=== PATIENT | male | born 1945 | race American Indian/Alaskan Native ===

== ENCOUNTER 2020-11-26 23:30 | Inpatient (IN) | payer MEDICARE ==
[2020-11-27] MEDS ORDERED: SUCRALFATE 1 GM TAB PO ONE (00:34)
[2020-11-27] MEDS ORDERED: FAMOTIDINE 20 MG TAB PO ONE (00:34)
[2020-11-27] MEDS ORDERED: ONDANSETRON 4 MG ODT TAB PO ONE (00:34)
--- NOTE | 2020-11-27 00:39 | Event Note ---
ED Screening Note Date of service: 11/27/20 Time: 00:36 ED Screening Note: Patient is a 75 yo AA male with a h/o HTN and GERD presents to the ED with c/o acute onset persistent epigastric pain, intractable hiccups, nausea and vomiting for the last 2 days. Patient states that he has had multiple episodes of nausea and vomiting and worsening epigastric pain despite taking his usual GERD medications, Mylanta and Nexium. Patient denies chest pain, dizziness, fever, chills, cough, diarrhea, sore throat, headache, diaphoresis, neck pain, hematemesis or hematochezia This initial assessment/diagnostic orders/clinical plan/treatment(s) is/are subject to change based on patients health status, clinical progression and re- assessment by fellow clinical providers in the ED. Further treatment and workup at subsequent clinical providers discretion. Patient/guardian urged not to elope from the ED as their condition may be serious if not clinically assessed and managed. Initial orders include: CBC, CMP, UA, Lipase, EKG, chest x-ray, Troponins
[2020-11-27 00:54] LABS: Basophils % (Auto) 0.1 % (0.0-1.8); Eosinophils % (Auto) 0.5 % (0.0-4.3); Lymphocytes # (Auto) 1.2 K/mm3 (1.2-5.4); Lymphocytes % (Auto) 15.3 % (13.4-35.0); Mean Corpuscular HGB Conc 36 % (32-34); Mean Corpuscular Volume 97 fl (84-94); Monocytes # (Auto) 0.7 K/mm3 (0.0-0.8); Monocytes % (Auto) 9.3 % (0.0-7.3); Platelet Count 139 K/mm3 (140-440); Red Blood Count 4.33 M/mm3 (3.65-5.03); Red Cell Distribution Width 12.7 % (13.2-15.2)
--- NOTE | 2020-11-27 01:00 | XRay Report ---
CHEST 1 VIEW 0045 INDICATION / CLINICAL INFORMATION: dyspnea COMPARISON: None available. FINDINGS: SUPPORT DEVICES: None HEART / MEDIASTINUM: No significant abnormality. LUNGS / PLEURA: No significant pulmonary or pleural abnormality. No pneumothorax. ADDITIONAL FINDINGS: No significant additional findings. IMPRESSION: No significant acute abnormality Signer Name: Yves Judd MD Signed: 11/27/2020 12:55 AM Workstation Name: [id number]
[2020-11-27 01:03] LABS: Hematocrit 41.8 % (35.5-45.6); Hemoglobin 15.2 gm/dl (11.8-15.2)
[2020-11-27 01:17] LABS: Alanine Aminotransferase 35 units/L (7-56); Albumin 4.3 g/dL (3.9-5); Blood Urea Nitrogen 4 mg/dL (9-20); Calcium 8.4 mg/dL (8.4-10.2); Hemolysis Index 26
[2020-11-27 01:34] LABS: BUN/Creatinine Ratio 8
[2020-11-27] MEDS ORDERED: SODIUM CHLORIDE 0.9% 1000 ML 1,000 ML IV ONE (02:18)
[2020-11-27] MEDS ORDERED: POTASSIUM CHLORIDE ER 20 MEQ TAB PO ONE (02:19)
[2020-11-27] MEDS ORDERED: PANTOPRAZOLE 40 MG INJ IV ONE (02:19)
--- NOTE | 2020-11-27 02:23 | Emergency Department Report ---
HPI - General Chief Complaint: Abdominal Pain Time Seen by Provider: 11/27/20 02:11 - HPI HPI: This is a 75-year-old male who presents to the emergency department with a complaint of a 1 day history of upper abdominal pain along with nausea with vomiting. Patient has a history of some type of gastric or duodenal ulcer that was found years ago. He says that the abdominal pain is consistent with this. He denies any fever, constipation, diarrhea, dysuria, chest pain or shortness of breath. He does admit to some generalized weakness and lightheadedness. He has a past medical history of hypertension. He has not taken anything for his symptoms prior to presentation. He denies any tobacco or illicit drug use. He denies any excessive alcohol use or history of alcohol dependence. He has a primary care physician, Dr. Lester, but has not seen them regarding his symptoms. ED Past Medical Hx - Past Medical History Previous Medical History?: No Hx Hypertension: Yes - Surgical History Past Surgical History?: No - Social History Smoking Status: Never Smoker Substance Use Type: Alcohol ED Review of Systems ROS: Stated complaint: KICCUPS;ULCER;VOMITING Other details as noted in HPI Comment: All other systems reviewed and negative Constitutional: denies: chills, fever Eyes: denies: eye pain, vision change ENT: denies: ear pain, throat pain Respiratory: denies: cough, shortness of breath Cardiovascular: denies: chest pain, palpitations Gastrointestinal: abdominal pain, nausea, vomiting Genitourinary: denies: dysuria, discharge Musculoskeletal: denies: back pain, arthralgia Skin: denies: rash, lesions Neurological: other (Lightheadedness). denies: headache Physical Exam - Physical Exam Vital Signs: Vital Signs 11/27/20 00:20 Temperature 98.7 F Pulse Rate 68 Respiratory 18 Rate Blood Pressure 176/75 O2 Sat by Pulse 98 Oximetry Physical Exam: GENERAL: The patient is well-developed well-nourished. HENT: Normocephalic. Atraumatic. Patient has moist mucous membranes. EYES: Extraocular motions are intact. NECK: Supple. Trachea is midline. CHEST/LUNGS: Clear to auscultation. There is no respiratory distress noted. HEART/CARDIOVASCULAR: Regular. There is no tachycardia. There is no murmur. ABDOMEN: Abdomen is soft. Upper abdominal tenderness to palpation. No guarding. Patient has normal bowel sounds. SKIN: Skin is warm and dry. NEURO: The patient is awake, alert, and oriented. The patient is cooperative. The patient has no focal neurologic deficits. Normal speech. MUSCULOSKELETAL: There is no tenderness or deformity. There is no limitation range of motion. ED Course Vital Signs 11/27/20 00:20 Temperature 98.7 F Pulse Rate 68 Respiratory 18 Rate Blood Pressure 176/75 O2 Sat by Pulse 98 Oximetry ED Medical Decision Making - Lab Data Result diagrams: 11/27/20 00:37 11/27/20 00:37 Lab Results 11/27/20 11/27/20 11/27/20 Range/Units 00:37 00:37 00:41 WBC 7.8 (4.5-11.0) K/mm3 RBC 4.33 (3.65-5.03) M/mm3 Hgb 15.2 (11.8-15.2) gm/dl Hct 41.8 (35.5-45.6) % MCV 97 H (84-94) fl MCH 35 H (28-32) pg MCHC 36 H (32-34) % RDW 12.7 L (13.2-15.2) % Plt Count 139 L (140-440) K/mm3 Lymph % (Auto) 15.3 (13.4-35.0) % [place] % (Auto) 9.3 H (0.0-7.3) % Eos % (Auto) 0.5 (0.0-4.3) % Baso % (Auto) 0.1 (0.0-1.8) % Lymph # (Auto) 1.2 (1.2-5.4) K/mm3 [place] # (Auto) 0.7 (0.0-0.8) K/mm3 Eos # (Auto) 0.0 (0.0-0.4) K/mm3 Baso # (Auto) 0.0 (0.0-0.1) K/mm3 Seg Neutrophils % 74.8 H (40.0-70.0) % Seg Neutrophils # 5.8 (1.8-7.7) K/mm3 Sodium 114 L* (137-145) mmol/L Potassium 3.3 L (3.6-5.0) mmol/L Chloride 76.1 L (98-107) mmol/L Carbon Dioxide 24 (22-30) mmol/L Anion Gap 17 mmol/L BUN 4 L (9-20) mg/dL Creatinine 0.5 L (0.8-1.3) mg/dL Estimated GFR > 60 ml/min BUN/Creatinine Ratio 8 % Glucose 125 H (75-100) mg/dL Calcium 8.4 (8.4-10.2) mg/dL Total Bilirubin 1.60 H (0.1-1.2) mg/dL AST 76 H (5-40) units/L ALT 35 (7-56) units/L Alkaline Phosphatase 115 (35-129) units/L Troponin T < 0.010 (0.00-0.029) ng/mL Total Protein 6.8 (6.3-8.2) g/dL Albumin 4.3 (3.9-5) g/dL Albumin/Globulin Ratio 1.7 % Lipase 17 (13-60) units/L // Range/Units 03:32 WBC (4.5-11.0) K/mm3 RBC (3.65-5.03) M/mm3 Hgb (11.8-15.2) gm/dl Hct (35.5-45.6) % MCV (84-94) fl MCH (28-32) pg MCHC (32-34) % RDW (13.2-15.2) % Plt Count (140-440) K/mm3 Lymph % (Auto) (13.4-35.0) % [place] % (Auto) (0.0-7.3) % Eos % (Auto) (0.0-4.3) % Baso % (Auto) (0.0-1.8) % Lymph # (Auto) (1.2-5.4) K/mm3 [place] # (Auto) (0.0-0.8) K/mm3 Eos # (Auto) (0.0-0.4) K/mm3 Baso # (Auto) (0.0-0.1) K/mm3 Seg Neutrophils % (40.0-70.0) % Seg Neutrophils # (1.8-7.7) K/mm3 Sodium (137-145) mmol/L Potassium (3.6-5.0) mmol/L Chloride (98-107) mmol/L Carbon Dioxide (22-30) mmol/L Anion Gap mmol/L BUN (9-20) mg/dL Creatinine (0.8-1.3) mg/dL Estimated GFR ml/min BUN/Creatinine Ratio % Glucose (75-100) mg/dL Calcium (8.4-10.2) mg/dL Total Bilirubin (0.1-1.2) mg/dL AST (5-40) units/L ALT (7-56) units/L Alkaline Phosphatase (35-129) units/L Troponin T < 0.010 (0.00-0.029) ng/mL Total Protein (6.3-8.2) g/dL Albumin (3.9-5) g/dL Albumin/Globulin Ratio % Lipase (13-60) units/L - EKG Data -: EKG Interpreted by Me EKG shows normal: sinus rhythm, axis, intervals, QRS complexes (LVH), ST-T waves Rate: normal - EKG Data When compared to previous EKG there are: previous EKG unavailable Interpretation: LVH - Radiology Data Radiology results: report reviewed, image reviewed interpreted by me: Chest x-ray does not show any acute process. There are no pleural effusions, obvious pneumonia and there is no pneumothorax. No significant cardiomegaly. CT ABDOMEN AND PELVIS WITH CONTRAST INDICATION: Abd pain CONTRAST: 100 cc Omnipaque 300 IV COMPARISON: None available. All CT scans at this location are performed using CT dose reduction for ALARA by means of automated exposure control. FINDINGS: Moderate motion artifact is seen. Lung bases are clear of infiltrates. Small hiatal hernia is seen. Liver is mildly enlarged and has a length of 19 cm. Hepatic margin appears mildly nodular suggesting early cirrhosis. Spleen is not enlarged. No varices are seen. A cyst is noted superior ly in the left lobe. The periphery of the right lobe laterally a small hypodensity is seen measuring 13 mm with an internal density of 42 Hounsfield units. I suspect this is a small hemangioma within this peripheral location but it is an indeterminate lesion. Small bilateral renal cysts are seen. No urinary obstructive changes are noted. No other masses are seen. Gallbladder and bile ducts appear within normal limits. No evidence of bowel obstruction is seen. No focal inflammatory changes are noted. Free fluid is seen. Prostate is mildly enlarged. IMPRESSION: 1. No acute abnormalities are seen 2. Mild hepatomegaly. Evidence of early cirrhosis. 3. Small indeterminate lesion in the liver, likely a small hemangioma but I would suggest follow- up. - Medical Decision Making This patient presents to the emergency department with a complaint of upper abdo gerda pain, nausea and vomiting. Sometimes the pain will radiate up towards the chest. He says that it feels consistent with previous "ulcer." On examination the patient has reproducible upper abdominal tenderness to palpation. No guarding. The abdomen is soft and nontoxic in appearance. The patient had blood work done through triage that showed multiple electrolyte abnormalities. He has significant hyponatremia with a sodium of 114. There is hypochloremia, hypokalemia. No leukocytosis and the patient has had negative troponins x2. EKG did not have any morphology consistent with ST elevation myocardial infarction. Chest x-ray does not show any pneumonia, pleural effusions, widened mediastinum, or any other acute process. The patient had a CT scan of the abdomen and pelvis with IV contrast that may show some early liver cirrhosis but otherwise there is no acute process or etio logy of the patient's discomfort. Given the significant hyponatremia, the patient will be admitted to the hospital for further evaluation and treatment. He has received IV fluid resuscitation with normal saline, as this is hypertonic to his current sodium level. The patient was given IV analgesia, IV antiemetic, a PPI, and a GI cocktail. He was accepted for admission by the hospitalist, Dr. Jaime. Critical Care Time: No Critical care attestation.: If time is entered above; I have spent that time in minutes in the direct care of this critically ill patient, excluding procedure time. ED Disposition Clinical Impression: Hyponatremia syndrome, Hypochloremia, Hypokalemia Abdominal pain Qualifiers: Abdominal location: upper abdomen, unspecified Qualified Code(s): R10.10 - Upper abdominal pain, unspecified Hypertension Qualifiers: Hypertension type: essential hypertension Qualified Code(s): I10 - Essential (primary) hypertension Disposition: OP ADMIT IP TO THIS HOSP Is pt being admited?: Yes Condition: Serious Time of Disposition: 04:37
[2020-11-27] MEDS ORDERED: ONDANSETRON 4 MG/2 ML INJ IV ONE (03:24)
[2020-11-27 03:34] LABS: Bilirubin,Urine NEG (Negative); Blood,Urine MOD (Negative); Color,Urine Yellow (Yellow); Mucus,Urine FEW /HPF; Protein,Urine <15 mg/dL mg/dL (Negative); Urobilinogen,Urine < 2.0 mg/dL (<2.0)
--- NOTE | 2020-11-27 04:08 | Cat Scan Report ---
CT ABDOMEN AND PELVIS WITH CONTRAST INDICATION: Abd pain CONTRAST: 100 cc Omnipaque 300 IV COMPARISON: None available. All CT scans at this location are performed using CT dose reduction for ALARA by means of automated e xposure control. FINDINGS: Moderate motion artifact is seen. Lung bases are clear of infiltrates. Small hiatal hernia is seen. Liver is mildly enlarged and has a length of 19 cm. Hepatic margin appears mildly nodular suggesting early cirrhosis. Spleen is not enla rged. No varices are seen. A cyst is noted superiorly in the left lobe. The periphery of the right lo be laterally a small hypodensity is seen measuring 13 mm with an internal density of 42 Hounsfield un its. I suspect this is a small hemangioma within this peripheral location but it is an indeterminate lesion. Small bilateral renal cysts are seen. No urinary obstructive changes are noted. No other masses are s een. Gallbladder and bile ducts appear within normal limits. No evidence of bowel obstruction is seen . No focal inflammatory changes are noted. Free fluid is seen. Prostate is mildly enlarged. IMPRESSION: 1. No acute abnormalities are seen 2. Mild hepatomegaly. Evidence of early cirrhosis. 3. Small indeterminate lesion in the liver, likely a small hemangioma but I would suggest follow-up. Signer Name: Yves Judd MD Signed: 11/27/2020 4:03 AM Workstation Name: [id number]
[2020-11-27] MEDS ORDERED: LORazepam 2 MG/ML VIAL IV PRN (04:31)
[2020-11-27] MEDS ORDERED: ONDANSETRON 4 MG/2 ML INJ IV PRN (04:31)
[2020-11-27] MEDS ORDERED: ACETAMINOPHEN 325 MG TAB PO PRN (04:31)
[2020-11-27] MEDS ORDERED: THIAMINE 100 MG TAB PO ONE (04:33)
[2020-11-27] MEDS ORDERED: MULTIVITAMINS ,THERAPEUTIC TAB PO ONE (04:34)
[2020-11-27] MEDS ORDERED: ALUM-MAG HYDROXIDE-SIMETHICONE 200-200-20MG/5ML ORAL LIQD 30 ML PO ONE (04:39)
[2020-11-27] MEDS ORDERED: chlorproMAZINE 25 MG in SODIUM CHLORIDE 0.9% 50 ML IV PRN (04:39)
[2020-11-27] MEDS ORDERED: LIDOCAINE VISCOUS 2% 15 ML ORAL LIQD PO ONE (04:39)
[2020-11-27] MEDS ORDERED: SODIUM CHLORIDE 0.9% 1000 ML 1,000 ML IV SCH (04:45)
--- NOTE | 2020-11-27 05:11 | History and Physical Report ---
History of Present Illness Date of examination: 11/27/20 Date of admission: 11/27/2020 Chief complaint: abdominal pain, n/v, hiccups History of present illness: 75-year-old male with history of hypertension and GERD who presents to [facility] ED with complaints of nausea vomiting, abdominal pain, and hiccups x1 day. Patient complains of epigastric abdominal pain which is consistent with the pain he experiences when having a GERD "flare". He rates his pain 7/10. The pain is constant and is accompanied by hiccups. He usually takes Nexium to treat his GERD but he ran out of med and has not seen his primary care physician (Dr. Lester) for refill in quite some time. Denies fever, cough, headache, diarrhea, chest pain, palpitations, or shortness of breath. Endorses generalized weakness to which he attributes to his abdominal pain. Endorses social use of alcohol 1-2 beers every month, denies alcohol abuse, illicit drug use, tobacco use, or IV drug abuse. Past History Past Medical History: GERD, hypertension Past Surgical History: No surgical history Social history: , Lives alone, full code, other (Socially drinks 1-2 beers twice a month). denies: smoking, alcohol abuse, prescription drug abuse, IV drug use Family history: hypertension Medications and Allergies Allergies Allergy/AdvReac Type Severity Reaction Status Date / Time No Known Allergies Allergy Verified 11/27/20 00:41 Active Meds: Active Medications Acetaminophen (Acetaminophen 325 Mg Tab) 650 mg PO Q4H PRN PRN Reason: Pain MILD(1-3)/Fever >100.5/CELESTE Docusate Sodium (Docusate Sodium 100 Mg Cap) 100 mg PO BID LUC Heparin Sodium (Porcine) (Heparin 5,000 Unit/1 Ml Vial) 5,000 unit SUB-Q Q12HR LUC Sodium Chloride (Nacl 0.9% 1000 Ml) 1,000 mls @ 250 mls/hr IV ONCE ONE Stop: 11/27/20 06:17 Last Admin: 11/27/20 03:21 Dose: 250 mls/hr Documented by: Sodium Chloride (Nacl 0.9% 1000 Ml) 1,000 mls @ 100 mls/hr IV DIRECT LUC Chlorpromazine HCl 25 mg/ (Sodium Chloride) 51 mls @ 100 mls/hr IV Q8H PRN PRN Reason: Hiccups Ondansetron HCl (Ondansetron 4 Mg/2 Ml Inj) 4 mg IV Q6H PRN PRN Reason: Nausea And Vomiting Pantoprazole Sodium (Pantoprazole 40 Mg Inj) 40 mg IV BID LUC Sodium Chloride (Sodium Chloride 0.9% 10 Ml Flush Syringe) 10 ml IV BID LUC Sodium Chloride (Sodium Chloride 0.9% 10 Ml Flush Syringe) 10 ml IV PRN PRN PRN Reason: LINE FLUSH Review of Systems All systems: negative (As noted in HPI) Exam - Physical Exam Narrative exam: Physical exam General appearance: Present: No acute distress, alert and oriented 3, audible hiccups noted, older adult male - EENT Eyes: Present: PERRL, EOM intact ENT: hearing intact, normal dentition - Neck Neck: Present: supple, normal ROM - Respiratory Respiratory effort: Non-labored Respiratory: Clear throughout - Cardiovascular Heart rate: 78 (bpm) Rhythm: Sinus Heart Sounds: Present: S1 & S2. Absent: rub, click - Extremities Extremities: no ischemia, pulses intact, - Peripheral Assessment Peripheral Pulses: within normal limits - Abdominal General gastrointestinal: Distended, mild tenderness to epigastric region, normal bowel sounds - Integumentary Integumentary: Present: warm, dry - Musculoskeletal Musculoskeletal: Able to move all extremities -Neurological Neurological: CN II-XII intact - Psychiatric Psychiatric: cooperative - Constitutional Vitals: Temp Pulse Resp BP Pulse Ox 98.7 F 68 18 176/75 98 11/27/20 00:20 11/27/20 00:20 11/27/20 00:20 11/27/20 00:20 11/27/20 00:20 HEART Score - HEART Score Troponin: Troponin T < 0.010 ng/mL (0.00-0.029) 11/27/20 03:32 Results - Labs CBC & Chem 7: 11/27/20 00:37 11/27/20 00:37 Labs: Laboratory Last Values WBC 7.8 K/mm3 (4.5-11.0) 11/27/20 00:37 RBC 4.33 M/mm3 (3.65-5.03) 11/27/20 00:37 Hgb 15.2 gm/dl (11.8-15.2) 11/27/20 00:37 Hct 41.8 % (35.5-45.6) 11/27/20 00:37 MCV 97 fl (84-94) H 11/27/20 00:37 MCH 35 pg (28-32) H 11/27/20 00:37 MCHC 36 % (32-34) H 11/27/20 00:37 RDW 12.7 % (13.2-15.2) L 11/27/20 00:37 Plt Count 139 K/mm3 (140-440) L 11/27/20 00:37 Lymph % (Auto) 15.3 % (13.4-35.0) 11/27/20 00:37 [place] % (Auto) 9.3 % (0.0-7.3) H 11/27/20 00:37 Eos % (Auto) 0.5 % (0.0-4.3) 11/27/20 00:37 Baso % (Auto) 0.1 % (0.0-1.8) 11/27/20 00:37 Lymph # (Auto) 1.2 K/mm3 (1.2-5.4) 11/27/20 00:37 [place] # (Auto) 0.7 K/mm3 (0.0-0.8) 11/27/20 00:37 Eos # (Auto) 0.0 K/mm3 (0.0-0.4) 11/27/20 00:37 Baso # (Auto) 0.0 K/mm3 (0.0-0.1) 11/27/20 00:37 Seg Neutrophils % 74.8 % (40.0-70.0) H 11/27/20 00:37 Seg Neutrophils # 5.8 K/mm3 (1.8-7.7) 11/27/20 00:37 Sodium 114 mmol/L (137-145) L* 11/27/20 00:37 Potassium 3.3 mmol/L (3.6-5.0) L 11/27/20 00:37 Chloride 76.1 mmol/L (98-107) L 11/27/20 00:37 Carbon Dioxide 24 mmol/L (22-30) 11/27/20 00:37 Anion Gap 17 mmol/L 11/27/20 00:37 BUN 4 mg/dL (9-20) L 11/27/20 00:37 Creatinine 0.5 mg/dL (0.8-1.3) L 11/27/20 00:37 Estimated GFR > 60 ml/min 11/27/20 00:37 BUN/Creatinine Ratio 8 % 11/27/20 00:37 Glucose 125 mg/dL (75-100) H 11/27/20 00:37 Calcium 8.4 mg/dL (8.4-10.2) 11/27/20 00:37 Total Bilirubin 1.60 mg/dL (0.1-1.2) H 11/27/20 00:37 AST 76 units/L (5-40) H 11/27/20 00:37 ALT 35 units/L (7-56) 11/27/20 00:37 Alkaline Phosphatase 115 units/L (35-129) 11/27/20 00:37 Troponin T < 0.010 ng/mL (0.00-0.029) 11/27/20 03:32 Total Protein 6.8 g/dL (6.3-8.2) 11/27/20 00:37 Albumin 4.3 g/dL (3.9-5) 11/27/20 00:37 Albumin/Globulin Ratio 1.7 % 11/27/20 00:37 Lipase 17 units/L (13-60) 11/27/20 00:41 Urine Color Yellow (Yellow) 11/27/20 Unknown Urine Turbidity Clear (Clear) 11/27/20 Unknown Urine pH 7.0 (5.0-7.0) 11/27/20 Unknown Ur Specific [place] 1.008 (1.003-1.030) 11/27/20 Unknown Urine Protein <15 mg/dl mg/dL (Negative) 11/27/20 Unknown Urine Glucose (UA) Neg mg/dL (Negative) 11/27/20 Unknown Urine Ketones 20 mg/dL (Negative) 11/27/20 Unknown Urine Blood Mod (Negative) 11/27/20 Unknown Urine Nitrite Neg (Negative) 11/27/20 Unknown Urine Bilirubin Neg (Negative) 11/27/20 Unknown Urine Urobilinogen < 2.0 mg/dL (<2.0) 11/27/20 Unknown Ur Leukocyte Esterase Neg (Negative) 11/27/20 Unknown Urine WBC (Auto) 1.0 /HPF (0.0-6.0) 11/27/20 Unknown Urine RBC (Auto) 1.0 /HPF (0.0-6.0) 11/27/20 Unknown U Epithel Cells (Auto) < 1.0 /HPF (0-13.0) 11/27/20 Unknown Urine Mucus Few /HPF 11/27/20 Unknown - Diagnostic Impressions Diagnostic Impressions: FINDINGS: Moderate motion artifact is seen. Lung bases are clear of infiltrates. Small hiatal hernia is seen. Liver is mildly enlarged and has a length of 19 cm. Hepatic margin appears mildly nodular suggesting early cirrhosis. Spleen is not enlarged. No varices are seen. A cyst is noted superiorly in the left lobe. The periphery of the right lobe laterally a small hypodensity is seen measuring 13 mm with an internal density of 42 Hounsfield units. I suspect this is a small hemangioma within this peripheral location but it is an indeterminate lesion. Small bilateral renal cysts are seen. No urinary obstructive changes are noted. No other masses are seen. Gallbladder and bile ducts appear within normal limits. No evidence of bowel obstruction is seen. No focal inflammatory changes are noted. Free fluid is seen. Prostate is mildly enlarged. IMPRESSION: 1. No acute abnormalities are seen 2. Mild hepatomegaly. Evidence of early cirrhosis. 3. Small indeterminate lesion in the liver, likely a small hemangioma but I would suggest follow- up. Assessment and Plan Assessment and plan: Hyponatremia -Na on admission 114 -Slowly correct Na with IVF -Every 4 hours sodium check -Neuro checks -Continue to monitor replete prn -Nephrology consulted Hypokalemia -Mild at 3.3 -Received replacement in the ED -Continue to monitor electrolytes and replete as needed Acute abdominal pain -CT abdomen pelvis negative for acute abnormalities -Troponin negative x2 -Supportive care Indeterminate lesion in the liver -Incidental finding seen on CT abdomen pelvis -GI consulted Liver cirrhosis -Early evidence of liver cirrhosis seen on CT abdomen pelvis -Hepatitis panel pending -GI consulted -Denies history of EtOH abuse GERD -Reports history of GERD previously on PPI -Start IV Protonix twice daily HTN -Monitor BP -Resume home hypertensive meds once medication reconciliation has been completed Nausea and vomiting -Antiemetics -No obstruction seen on CT abdomen pelvis -Supportive care Hiccups -Chlorpromazine as needed for hiccups VTE prophylaxis?: Chemical, Mechanical Plan of care discussed with patient/family: Yes
[2020-11-27 06:22] LABS: Hepatitis B Surface Antigen Reactive (Negative); Hepatitis C Virus Antibody Non-Reactive (NonReactive)
[2020-11-27] MEDS: HEPARIN 5,000 UNIT/1 ML VIAL SUB-Q SCH ×3 (08:45→22:00)
[2020-11-27] MEDS: PANTOPRAZOLE 40 MG INJ IV SCH ×3 (08:45→22:00)
[2020-11-27] MEDS: DOCUSATE SODIUM 100 MG CAP PO SCH ×3 (08:45→22:00)
--- NOTE | 2020-11-27 09:55 | Consultation ---
History of Present Illness - Reason for Consult Consult date: 11/27/20 hyponatremia - History of Present Illness 75-year-old male with history of hypertension and GERD admitted to the [facility] with belly pain, N/V and hiccups. Pt takes nexium for GERD. He drinks etOH socially. He denies fever, cough, headache, diarrhea, chest pain, palpitations, or shortness of breath. His Na has been found to be low. ROS: As in HPI otherwise 12 point review of systems -ve Past History Past Medical History: GERD, hypertension Past Surgical History: No surgical history Social history: , Lives alone, full code, other (Socially drinks 1-2 beers twice a month). denies: smoking, alcohol abuse, prescription drug abuse, IV drug use Family history: hypertension Medications and Allergies Allergies Allergy/AdvReac Type Severity Reaction Status Date / Time No Known Allergies Allergy Verified 11/27/20 00:41 Active Meds: Active Medications Acetaminophen (Acetaminophen 325 Mg Tab) 650 mg PO Q4H PRN PRN Reason: Pain MILD(1-3)/Fever >100.5/CELESTE Docusate Sodium (Docusate Sodium 100 Mg Cap) 100 mg PO BID [facility] Last Admin: 11/27/20 08:45 Dose: 100 mg Documented by: Heparin Sodium (Porcine) (Heparin 5,000 Unit/1 Ml Vial) 5,000 unit SUB-Q Q12HR [facility] Last Admin: 11/27/20 08:45 Dose: 5,000 unit Documented by: Sodium Chloride (Nacl 0.9% 1000 Ml) 1,000 mls @ 100 mls/hr IV DIRECT [facility] Last Admin: 11/27/20 08:47 Dose: 100 mls/hr Documented by: Chlorpromazine HCl 25 mg/ (Sodium Chloride) 51 mls @ 100 mls/hr IV Q8H PRN PRN Reason: Hiccups Ondansetron HCl (Ondansetron 4 Mg/2 Ml Inj) 4 mg IV Q6H PRN PRN Reason: Nausea And Vomiting Pantoprazole Sodium (Pantoprazole 40 Mg Inj) 40 mg IV BID [facility] Last Admin: 11/27/20 08:45 Dose: 40 mg Documented by: Sodium Chloride (Sodium Chloride 0.9% 10 Ml Flush Syringe) 10 ml IV BID [facility] Sodium Chloride (Sodium Chloride 0.9% 10 Ml Flush Syringe) 10 ml IV PRN PRN PRN Reason: LINE FLUSH Exam - Vital Signs Vital signs: Vital Signs Temp Pulse Resp BP Pulse Ox 98.7 F 68 18 176/75 98 11/27/20 00:20 11/27/20 00:20 11/27/20 00:20 11/27/20 00:20 11/27/20 00:20 - Physical Exam Narrative exam: General appearance: Present: No acute distress, alert and oriented 3, audible hiccups noted, older adult male - EENT Eyes: Present: PERRL, EOM intact ENT: hearing intact, normal dentition - Neck Neck: Present: supple, normal ROM - Respiratory Respiratory effort: Non-labored Respiratory: Clear throughout - Cardiovascular Heart rate: 78 (bpm) Rhythm: Sinus Heart Sounds: Present: S1 & S2. Absent: rub, click - Extremities Extremities: no ischemia, pulses intact, - Peripheral Assessment Peripheral Pulses: within normal limits - Abdominal General gastrointestinal: Distended, mild tenderness to epigastric region, norm al bowel sounds - Integumentary Integumentary: Present: warm, dry - Musculoskeletal Musculoskeletal: Able to move all extremities -Neurological Neurological: CN II-XII intact - Psychiatric Results - Lab Results 11/27/20 00:37 11/27/20 16:36 Most recent lab results Calcium 8.4 mg/dL (8.4-10.2) 11/27/20 00:37 Assessment and Plan Hyponatremia Hypokalemia Acute abdominal pain Indeterminate lesion in the liver Liver cirrhosis GERD HTN Nausea and vomiting -On D5W to prevent na overcorrection -Check BMP q4H -Target rise in Na <8 meq/24 hours to prevent ODS -Monitor closely Ryan Boyle MD [phone]
[2020-11-27] MEDS ORDERED: FOLIC ACID 1 MG TAB PO SCH (10:00)
[2020-11-27 10:40] LABS: BUN/Creatinine Ratio 7; Blood Urea Nitrogen 4 mg/dL (9-20); Calcium 8.8 mg/dL (8.4-10.2); Hemolysis Index 8
[2020-11-27 11:06] LABS: Uric Acid 3.8 mg/dL (3.5-7.6)
--- NOTE | 2020-11-27 11:29 | Event Note ---
Date: 11/27/20 Patient seen and examined H&P and lab results reviewed Patient continues to have hiccups at the time of my evaluation Patient states that he has flareup of hiccups off and on for several years and states he has peptic ulcer disease Hyponatremia shows slow improvement and is up to 120 this morning Unclear if he takes thiazide diuretic for his hypertension as he does not know the name of medication Discussed with RN to call [facility] and pharmacy in [place] to get his medication list GI and nephrology consulted Monitor labs
[2020-11-27] MEDS ORDERED: DEXTROSE 5% IN WATER 1,000 ML IV SCH ×2 (14:00→19:00)
--- NOTE | 2020-11-27 16:42 | Consultation ---
History of Present Illness - Reason for Consult Consult date: 11/27/20 GERD Requesting physician: AR VILLAR - History of Present Illness Mr. 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 Patient has a history of intermittent GERD for which she takes as needed Nexium. He has also had hiccups in the past. This episode started 3 days ago and he came in because on the night prior to admission, he was having hiccups frequently to where he was unable to sleep and developed bilateral upper abdominal pain with the hiccups. He was found to have a sodium of 114 which is being corrected, and his hiccups are currently much improved. He denies GERD. He has no dysphagia. He denies abdominal pain, nausea, vomiting. Bowel movements occur once or twice a day without any change. He denies weight loss. Patient notes that he was told he had liver disease in [place] years ago, but we do not have any details. He denies any ethanol usage. Medications reviewed. Past History Past Medical History: GERD, hypertension Past Surgical History: No surgical history Social history: , Lives alone, full code, other (Socially drinks 1-2 beers twice a month). denies: smoking, alcohol abuse, prescription drug abuse, IV drug use Family history: hypertension Medications and Allergies Allergies Allergy/AdvReac Type Severity Reaction Status Date / Time No Known Allergies Allergy Verified 11/27/20 00:41 Active Meds: Active Medications Acetaminophen (Acetaminophen 325 Mg Tab) 650 mg PO Q4H PRN PRN Reason: Pain MILD(1-3)/Fever >100.5/CELESTE Docusate Sodium (Docusate Sodium 100 Mg Cap) 100 mg PO BID [facility] Last Admin: 11/27/20 13:26 Dose: Not Given Documented by: Heparin Sodium (Porcine) (Heparin 5,000 Unit/1 Ml Vial) 5,000 unit SUB-Q Q12HR [facility] Last Admin: 11/27/20 13:26 Dose: Not Given Documented by: Chlorpromazine HCl 25 mg/ (Sodium Chloride) 51 mls @ 100 mls/hr IV Q8H PRN PRN Reason: Hiccups Last Admin: 11/27/20 13:25 Dose: 100 mls/hr Documented by: Ondansetron HCl (Ondansetron 4 Mg/2 Ml Inj) 4 mg IV Q6H PRN PRN Reason: Nausea And Vomiting Pantoprazole Sodium (Pantoprazole 40 Mg Inj) 40 mg IV BID [facility] Last Admin: 11/27/20 13:26 Dose: Not Given Documented by: Sodium Chloride (Sodium Chloride 0.9% 10 Ml Flush Syringe) 10 ml IV BID [facility] Last Admin: 11/27/20 13:26 Dose: 10 ml Documented by: Sodium Chloride (Sodium Chloride 0.9% 10 Ml Flush Syringe) 10 ml IV PRN PRN PRN Reason: LINE FLUSH Review of Systems All systems: negative (as noted in HPI) Exam - Constitutional Vitals: Temp Pulse Resp BP Pulse Ox 99.8 F H 71 18 146/75 94 11/27/20 12:22 11/27/20 12:22 11/27/20 12:22 11/27/20 12:22 11/27/20 12:22 General appearance: Present: no acute distress - EENT Eyes: Present: PERRL, EOM intact ENT: hearing intact - Respiratory Respiratory effort: normal Respiratory: bilateral: CTA - Cardiovascular Rhythm: regular Heart Sounds: Present: S1 & S2 - Extremities Extremities: No edema - Abdominal General gastrointestinal: Present: soft, non-tender Results - Labs CBC & Chem 7: 11/27/20 00:37 11/27/20 12:39 Labs: Abnormal lab results 11/27/20 11/27/20 11/27/20 Range/Units 00:37 00:37 05:42 MCV 97 H (84-94) fl MCH 35 H (28-32) pg MCHC 36 H (32-34) % RDW 12.7 L (13.2-15.2) % Plt Count 139 L (140-440) K/mm3 [place] % (Auto) 9.3 H (0.0-7.3) % Seg Neutrophils % 74.8 H (40.0-70.0) % Sodium 114 L* 118 L* (137-145) mmol/L Potassium 3.3 L (3.6-5.0) mmol/L Chloride 76.1 L (98-107) mmol/L BUN 4 L (9-20) mg/dL Creatinine 0.5 L (0.8-1.3) mg/dL Glucose 125 H (75-100) mg/dL Total Bilirubin 1.60 H (0.1-1.2) mg/dL AST 76 H (5-40) units/L 11/27/20 11/27/20 11/27/20 Range/Units 09:42 10:13 12:39 MCV (84-94) fl MCH (28-32) pg MCHC (32-34) % RDW (13.2-15.2) % Plt Count (140-440) K/mm3 [place] % (Auto) (0.0-7.3) % Seg Neutrophils % (40.0-70.0) % Sodium 120 L 120 L 123 L (137-145) mmol/L Potassium (3.6-5.0) mmol/L Chloride 84.4 L (98-107) mmol/L BUN 4 L (9-20) mg/dL Creatinine 0.6 L (0.8-1.3) mg/dL Glucose (75-100) mg/dL Total Bilirubin (0.1-1.2) mg/dL AST (5-40) units/L Assessment and Plan 1. Hiccups -most likely related to hyponatremia. Seems to be improving as that resolves, and patient is much better. Doubt related to GI process, but can be evaluated further as an outpatient if he has recurrent problems. -Evaluate hyponatremia -If has recurrent symptoms, low-dose Thorazine. 2. History of GERD -relatively mild. Patient uses Nexium as needed. He has no alarm symptoms. -Discussed lifestyle changes. -At present, give PPI daily. -Follow-up as outpatient for further evaluation. 3. Cirrhosis -mild nodularity of liver noted on CT scan. LFTs relatively normal with only mild elevation of AST at 76. Patient has low platelet count of 139,000. Hepatitis B surface antigen is positive on acute serologies. Patient is not aware of a history of hepatitis B. 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 -Check hepatitis B viral DNA to confirm infection. This can be done as an outpatient. Would recommend that patient follow-up with GI on an outpatient basis. No further inpatient recommendations. We will sign off. Thanks.
[2020-11-27 17:10] LABS: Blood Urea Nitrogen 6 mg/dL (9-20); Calcium 8.6 mg/dL (8.4-10.2); Hemolysis Index 30
[2020-11-27 17:11] LABS: BUN/Creatinine Ratio 9
[2020-11-27] MEDS: DEXTROSE 5% IN WATER 1,000 ML IV SCH ×2 (18:19→18:43)
[2020-11-28 00:11] LABS: Blood Urea Nitrogen 5 mg/dL (9-20); Calcium 8.9 mg/dL (8.4-10.2); Hemolysis Index 83
[2020-11-28 00:15] LABS: BUN/Creatinine Ratio 7
[2020-11-28] MEDS ORDERED: DEXTROSE 5% IN WATER 1,000 ML IV ONE (00:50)
[2020-11-28] MEDS: DEXTROSE 5% IN WATER 1,000 ML IV SCH ×4 (02:12→21:52)
[2020-11-28 07:00] LABS: Mean Corpuscular HGB Conc 36 % (32-34); Mean Corpuscular Volume 100 fl (84-94); Platelet Count 131 K/mm3 (140-440); Red Blood Count 4.33 M/mm3 (3.65-5.03); Red Cell Distribution Width 12.7 % (13.2-15.2)
[2020-11-28 07:18] LABS: Hematocrit 43.2 % (35.5-45.6); Hemoglobin 15.5 gm/dl (11.8-15.2)
[2020-11-28 07:20] LABS: BUN/Creatinine Ratio 5; Blood Urea Nitrogen 4 mg/dL (9-20); Calcium 8.7 mg/dL (8.4-10.2); Hemolysis Index 0
[2020-11-28] MEDS ORDERED: POTASSIUM CHLORIDE ER 20 MEQ TAB PO ONE (07:45)
[2020-11-28] MEDS ORDERED: DESMOPRESSIN 4 MCG/ML VIAL IV ONE (08:30)
--- NOTE | 2020-11-28 08:38 | Progress Note ---
Assessment and Plan Hyponatremia Hypokalemia Acute abdominal pain Indeterminate lesion in the liver Liver cirrhosis GERD HTN Nausea and vomiting -On D5W to prevent na overcorrection, also gave DDAVP 2 mcg IV once. Having polyuria. -Check BMP q4H -Target rise in Na <8 meq/24 hours to prevent ODS -Monitor closely Ryan Boyel MD [phone] Subjective Date of service: 11/28/20 Interval history: Making urine. Objective - Exam Narrative Exam: General appearance: Present: No acute distress, alert and oriented 3, audible hiccups noted, older adult male - EENT Eyes: Present: PERRL, EOM intact ENT: hearing intact, normal dentition - Neck Neck: Present: supple, normal ROM - Respiratory Respiratory effort: Non-labored Respiratory: Clear throughout - Cardiovascular Heart rate: 78 (bpm) Rhythm: Sinus Heart Sounds: Present: S1 & S2. Absent: rub, click - Extremities Extremities: no ischemia, pulses intact, - Peripheral Assessment Peripheral Pulses: within normal limits - Abdominal General gastrointestinal: Distended, mild tenderness to epigastric region, nor mal bowel sounds - Integumentary Integumentary: Present: warm, dry - Musculoskeletal Musculoskeletal: Able to move all extremities -Neurological Neurological: CN II-XII intact - Psychiatric - Vital Signs Vital signs: Vital Signs - 12hr 11/27/20 11/27/20 11/28/20 22:00 23:50 04:56 Temperature 97.9 F 98.6 F Pulse Rate 89 87 87 Respiratory 18 18 Rate Blood Pressure 129/79 148/92 O2 Sat by Pulse 99 97 Oximetry - Lab 11/28/20 05:07 11/28/20 14:06 Most recent lab results Calcium 8.7 mg/dL (8.4-10.2) 11/28/20 05:07 Urine Sodium 10 mmol/L 11/27/20 19:13 Medications & Allergies - Medications Allergies/Adverse Reactions: Allergies No Known Allergies Allergy (Verified 11/27/20 00:41) Home Medications: Home Medications Medication Instructions Recorded Confirmed Last Taken Type Pantoprazole [Protonix] 40 mg PO QDAY #30 tablet 11/28/20 Unknown Rx Active Medications: Generic Name Dose Route Start Last Admin Trade Name Freq PRN Reason Stop Dose Admin Acetaminophen 650 mg 11/27/20 04:31 Acetaminophen 325 Mg Tab PO Q4H PRN Pain MILD(1-3)/Fever >100.5/CELESTE Desmopressin Acetate 2 mcg 11/28/20 08:30 Desmopressin 4 Mcg/Ml Vial IV 11/28/20 08:31 ONCE ONE Docusate Sodium 100 mg 11/27/20 10:00 11/27/20 22:00 Docusate Sodium 100 Mg Cap PO 100 mg BID LUC Administration Heparin Sodium (Porcine) 5,000 unit 11/27/20 10:00 11/27/20 22:00 Heparin 5,000 Unit/1 Ml Vial SUB-Q 5,000 unit Q12HR LUC Administration Chlorpromazine HCl 25 mg/ 51 mls @ 100 mls/hr 11/27/20 04:39 11/27/20 18:41 Sodium Chloride IV Infused Q8H PRN Infusion Hiccups Dextrose 1,000 mls @ 200 mls/hr 11/28/20 01:00 11/28/20 06:54 D5w IV 200 mls/hr DIRECT LUC Administration Ondansetron HCl 4 mg 11/27/20 04:31 Ondansetron 4 Mg/2 Ml Inj IV Q6H PRN Nausea And Vomiting Pantoprazole Sodium 40 mg 11/27/20 10:00 11/27/20 22:00 Pantoprazole 40 Mg Inj IV 40 mg BID LUC Administration Sodium Chloride 10 ml 11/27/20 10:00 11/27/20 22:01 Sodium Chloride 0.9% 10 Ml Flush Syringe IV 10 ml BID LUC Administration Sodium Chloride 10 ml 11/27/20 04:31 Sodium Chloride 0.9% 10 Ml Flush Syringe IV PRN PRN LINE FLUSH
[2020-11-28] MEDS ORDERED: DEXTROSE 5% IV SCH (09:00)
[2020-11-28] MEDS ORDERED: WATER IV SCH (09:00)
[2020-11-28] MEDS: DOCUSATE SODIUM 100 MG CAP PO SCH ×2 (09:01→21:48)
[2020-11-28] MEDS: HEPARIN 5,000 UNIT/1 ML VIAL SUB-Q SCH ×2 (09:01→21:48)
[2020-11-28] MEDS: PANTOPRAZOLE 40 MG INJ IV SCH ×2 (09:02→21:49)
--- NOTE | 2020-11-28 09:34 | Discharge Summary ---
Providers - Providers Date of Admission: 11/27/20 04:35 Date of discharge: 11/28/20 Attending physician: AR VILLAR 11/27/20 04:28 Consult to Physician [CONS] Routine Comment: Consulting Provider: ANGEL WILSON Physician Instructions: Reason For Exam: hyponatremia 11/27/20 04:32 Physical Therapy Evaluation and Treat [CONS] Routine Comment: Reason For Exam: Eval 11/27/20 04:33 Occupational Therapy Evaluate and Treat [CONS] Routine Comment: Reason For Exam: Eval 11/27/20 05:04 Consult to Physician [CONS] Routine Comment: Consulting Provider: VASILIY JOSEPH Physician Instructions: Reason For Exam: indeterminate lesion in the liver, early cirrhosis Primary care physician: ISELA REESE MD Hospitalization Condition: Serious Hospital course: History of present illness: 75-year-old male with history of hypertension and GERD who presents to [facility] ED with complaints of nausea vomiting, abdominal pain, and hiccups x1 day. Patient complains of epigastric abdominal pain which is consistent with the pain he experiences when having a GERD "flare". He rates his pain 7/10. The pain is constant and is accompanied by hiccups. He usually takes Nexium to treat his GERD but he ran out of med and has not seen his primary care physician (Dr. Lester) for refill in quite some time. Denies fever, cough, headache, diarrhea, chest pain, palpitations, or shortness of breath. Endorses generalized weakness to which he attributes to his abdominal pain. Endorses social use of alcohol 1-2 beers every month, denies alcohol abuse, illicit drug use, tobacco use, or IV drug abuse. 11/28 patient is alert and oriented. No complaints. Hiccups improved. GI note reviewed and discussed with Dr. Brown.. Lab results reviewed. Patient is medically stable for discharge. Outpatient follow-up with GI and PCP Final diagnosis Hyponatremia Unclear etiology but most likely secondary to severe hiccups likely from phrenic nerve irritation Serum sodium at the time of discharge was 137 Hypokalemia Mild Potassium supplemented Abdominal pain Likely musculoskeletal from severe hiccups Intractable hiccups Improved Etiology unclear Follow-up with GI GERD Continue PPI Hypertension Continue home medications ? Cirrhosis-mild CT of the abdomen and pelvis results reviewed GI note reviewed-possibly CAMPOS HBs Ag positive Patient is not aware of this Outpatient follow-up with GI Disposition: DC-01 TO HOME OR SELFCARE Final Discharge Diagnosis (Prints w/discharge instructions): Hyponatremia Time spent for discharge: 38 minutes Core Measure Documentation - Palliative Care Palliative Care/ Comfort Measures: Not Applicable - Core Measures Any of the following diagnoses?: none Exam - Constitutional Vitals: Temp Pulse Resp BP Pulse Ox 98.1 F 82 18 161/98 97 11/28/20 07:57 11/28/20 07:57 11/28/20 07:57 11/28/20 07:57 11/28/20 07:57 General appearance: Present: no acute distress, well-nourished - EENT Eyes: Present: PERRL, EOM intact ENT: hearing intact, clear oral mucosa - Neck Neck: Present: supple, normal ROM - Respiratory Respiratory effort: normal Respiratory: bilateral: CTA - Cardiovascular Rhythm: regular Heart Sounds: Present: S1 & S2 - Extremities Extremities: No edema - Abdominal General gastrointestinal: Present: soft Male genitourinary: Present: deferred - Rectal Rectal Exam: deferred - Integumentary Integumentary: Present: clear - Musculoskeletal Musculoskeletal: strength equal bilaterally - Psychiatric Psychiatric: appropriate mood/affect - Neurologic Neurologic: no focal deficits Plan Activity: advance as tolerated Weight Bearing Status: Full Weight Bearing Diet: regular, low fat, low cholesterol, low salt Follow up with: ISELA REESE MD [Primary Care Provider] - 7 Days FLORES BROWN MD [Staff Physician] - 7 Days Prescriptions: Pantoprazole [Protonix] 40 mg PO QDAY #30 tablet
--- NOTE | 2020-11-28 11:53 | Progress Note ---
Subjective Date of service: 11/28/20 Interval history: History of present illness: 75-year-old male with history of hypertension and GERD who presents to [facility] ED with complaints of nausea vomiting, abdominal pain, and hiccups x1 day. Patient complains of epigastric abdominal pain which is consistent with the pain he experiences when having a GERD "flare". He rates his pain 7/10. The pain is constant and is accompanied by hiccups. He usually takes Nexium to treat his GERD but he ran out of med and has not seen his primary care physician (Dr. Lester) for refill in quite some time. Denies fever, cough, headache, diarrhea, chest pain, palpitations, or shortness of breath. Endorses generalized weakness to which he attributes to his abdominal pain. Endorses social use of alcohol 1-2 beers every month, denies alcohol abuse, illicit drug use, tobacco use, or IV drug abuse. 11/28 patient is alert and oriented. No complaints. Hiccups improved. GI note reviewed and discussed with Dr. Brown.. Lab results reviewed. Patient is medically stable Patient was discharged earlier today but per recommendations of nephrology patient's discharge was canceled Assessment and plan Hyponatremia-improved Unclear etiology but most likely from phrenic nerve irritation Serum sodium today is 137 Hypokalemia Mild Potassium supplemented Abdominal pain Likely musculoskeletal from severe hiccups Intractable hiccups Improved Etiology unclear Follow-up with GI GERD Continue PPI Hypertension Continue home medications ? Cirrhosis-mild CT of the abdomen and pelvis results reviewed GI note reviewed-possibly CAMPOS HBs Ag positive Patient is not aware of this Outpatient follow-up with GI Objective - Constitutional Vitals: Vital Signs - 12hr 11/28/20 11/28/20 11/28/20 04:56 07:57 11:40 Temperature 98.6 F 98.1 F Pulse Rate 87 82 82 Respiratory 18 18 Rate Blood Pressure 148/92 161/98 O2 Sat by Pulse 97 97 Oximetry General appearance: Present: no acute distress, well-nourished - EENT Eyes: PERRL, EOM intact ENT: hearing intact, clear oral mucosa - Neck Neck: supple, normal ROM - Respiratory Respiratory effort: normal Respiratory: bilateral: CTA - Cardiovascular Rhythm: regular Heart Sounds: Present: S1 & S2 Extremities: No edema - Gastrointestinal General gastrointestinal: Present: soft, non-tender Rectal Exam: deferred - Genitourinary Male genitourinary: deferred - Integumentary Integumentary: clear - Musculoskeletal Musculoskeletal: strength equal bilaterally - Neurologic Neurologic: no focal deficits, moves all extremities - Psychiatric Psychiatric: appropriate mood/affect - Labs CBC & Chem 7: 11/28/20 05:07 11/28/20 05:07 Labs: Abnormal lab results 11/27/20 11/27/20 11/27/20 Range/Units 12:39 16:36 23:18 Hgb (11.8-15.2) gm/dl MCV (84-94) fl MCH (28-32) pg MCHC (32-34) % RDW (13.2-15.2) % Plt Count (140-440) K/mm3 Sodium 123 L 126 L 134 L D (137-145) mmol/L Potassium 3.5 L (3.6-5.0) mmol/L Chloride 91.2 L 97.0 L (98-107) mmol/L BUN 6 L 5 L (9-20) mg/dL Creatinine 0.7 L 0.7 L (0.8-1.3) mg/dL Glucose (75-100) mg/dL 11/28/20 11/28/20 Range/Units 05:07 05:07 Hgb 15.5 H (11.8-15.2) gm/dl MCV 100 H (84-94) fl MCH 36 H (28-32) pg MCHC 36 H (32-34) % RDW 12.7 L (13.2-15.2) % Plt Count 131 L (140-440) K/mm3 Sodium (137-145) mmol/L Potassium 3.4 L (3.6-5.0) mmol/L Chloride (98-107) mmol/L BUN 4 L (9-20) mg/dL Creatinine (0.8-1.3) mg/dL Glucose 127 H (75-100) mg/dL HEART Score - HEART Score Troponin: Troponin T < 0.010 ng/mL (0.00-0.029) 11/27/20 03:32
[2020-11-28 12:01] LABS: Platelet Estimate Consistent w Auto; RBC Morphology Normal; Total Cells Counted 100
[2020-11-28 14:42] LABS: BUN/Creatinine Ratio 6; Blood Urea Nitrogen 5 mg/dL (9-20); Calcium 8.6 mg/dL (8.4-10.2); Hemolysis Index 4
[2020-11-28] MEDS ORDERED: hydrALAZINE 20 MG/1 ML INJ IV ONE (16:26)
[2020-11-29] MEDS: DEXTROSE 5% IN WATER 1,000 ML IV SCH (07:15)
[2020-11-29 07:46] VITALS: BP 156/90
[2020-11-29] MEDS: DOCUSATE SODIUM 100 MG CAP PO SCH (10:17)
[2020-11-29] MEDS: HEPARIN 5,000 UNIT/1 ML VIAL SUB-Q SCH (10:18)
--- NOTE | 2020-11-29 11:38 | Progress Note ---
Assessment and Plan Assessment: Hyponatremia Hypokalemia Acute abdominal pain Indeterminate lesion in the liver Liver cirrhosis GERD HTN Nausea and vomiting Plan: -Lab reviewed. Serum sodium 131 today, yesterday was 134. Admission level was 114. -On D5W to prevent sodium overcorrection, S/P DDAVP 2 mcg IV x1 yesterday. -Will discontinue IVF today -Target rise in Na <8 meq/24 hours to prevent ODS -Can D/C home from nephrology standpoint, will need patient to f/u with us in office in 7 days of discharge for outpatient monitoring of sodium levels -Plan of care reviewed with Dr. Chen Subjective Date of service: 11/29/20 Principal diagnosis: Hyponatremia Interval history: Patient seen lying in bed. States he is feeling better. States the IVF causes him to urinate alot. Objective - Vital Signs Vital signs: Vital Signs - 12hr 11/29/20 11/29/20 11/29/20 00:46 05:25 07:43 Temperature 98.4 F 98.4 F Pulse Rate 84 93 H Respiratory 20 18 Rate Blood Pressure 156/90 Blood Pressure 150/82 [Left] O2 Sat by Pulse 98 99 94 Oximetry - General Appearance General appearance: well-developed, appears stated age EENT: ATNC, PERRL, hearing intact, vision intact Neck: no JVD, supple Respiratory: Present: Decreased Breath Sounds Cardiology: S1S2 Gastrointestinal: normoactive bowel sounds Integumentary: warm and dry Neurologic: alert and oriented x3 Musculoskeletal: other (Has mild edema to BLE) - Lab 11/28/20 05:07 11/28/20 14:06 Most recent lab results Calcium 8.6 mg/dL (8.4-10.2) 11/28/20 14:06 Urine Sodium 10 mmol/L 11/27/20 19:13 Medications & Allergies - Medications Allergies/Adverse Reactions: Allergies No Known Allergies Allergy (Verified 11/27/20 00:41) Home Medications: Home Medications Medication Instructions Recorded Confirmed Last Taken Type Pantoprazole [Protonix] 40 mg PO QDAY #30 tablet 11/28/20 Unknown Rx Active Medications: Generic Name Dose Route Start Last Admin Trade Name Freq PRN Reason Stop Dose Admin Acetaminophen 650 mg 11/27/20 04:31 Acetaminophen 325 Mg Tab PO Q4H PRN Pain MILD(1-3)/Fever >100.5/CELESTE Docusate Sodium 100 mg 11/27/20 10:00 11/29/20 10:17 Docusate Sodium 100 Mg Cap PO 100 mg BID LUC Administration Heparin Sodium (Porcine) 5,000 unit 11/27/20 10:00 11/29/20 10:18 Heparin 5,000 Unit/1 Ml Vial SUB-Q 5,000 unit Q12HR LUC Administration Chlorpromazine HCl 25 mg/ 51 mls @ 100 mls/hr 11/27/20 04:39 11/27/20 18:41 Sodium Chloride IV Infused Q8H PRN Infusion Hiccups Dextrose 1,000 mls @ 200 mls/hr 11/28/20 01:00 11/29/20 07:15 D5w IV 200 mls/hr DIRECT LUC Administration Ondansetron HCl 4 mg 11/27/20 04:31 Ondansetron 4 Mg/2 Ml Inj IV Q6H PRN Nausea And Vomiting Pantoprazole Sodium 40 mg 11/30/20 07:30 Pantoprazole 40 Mg Tab PO QDAC LUC Sodium Chloride 10 ml 11/27/20 10:00 11/28/20 21:49 Sodium Chloride 0.9% 10 Ml Flush Syringe IV 10 ml BID LUC Administration Sodium Chloride 10 ml 11/27/20 04:31 Sodium Chloride 0.9% 10 Ml Flush Syringe IV PRN PRN LINE FLUSH
--- NOTE | 2020-11-29 12:50 | Discharge Summary ---
Providers - Providers Date of Admission: 11/27/20 04:35 Date of discharge: 11/29/20 Attending physician: AR VILLAR 11/27/20 04:28 Consult to Physician [CONS] Routine Comment: Consulting Provider: ANGEL WILSON Physician Instructions: Reason For Exam: hyponatremia 11/27/20 04:32 Physical Therapy Evaluation and Treat [CONS] Routine Comment: Reason For Exam: Eval 11/27/20 04:33 Occupational Therapy Evaluate and Treat [CONS] Routine Comment: Reason For Exam: Eval 11/27/20 05:04 Consult to Physician [CONS] Routine Comment: Consulting Provider: VASILIY JOSEPH Physician Instructions: Reason For Exam: indeterminate lesion in the liver, early cirrhosis Primary care physician: ISELA REESE MD Hospitalization Condition: Serious Hospital course: History of present illness: 75-year-old male with history of hypertension and GERD who presents to [facility] ED with complaints of nausea vomiting, abdominal pain, and hiccups x1 day. Patient complains of epigastric abdominal pain which is consistent with the pain he experiences when having a GERD "flare". He rates his pain 7/10. The pa in is constant and is accompanied by hiccups. He usually takes Nexium to treat his GERD but he ran out of med and has not seen his primary care physician (Dr. Lester) for refill in quite some time. Denies fever, cough, headache, diarrhea, chest pain, palpitations, or shortness of breath. Endorses generalized weakness to which he attributes to his abdominal pain. Endorses social use of alcohol 1-2 beers every month, denies alcohol abuse, illicit drug use, tobacco use, or IV drug abuse. 11/28 patient is alert and oriented. No complaints. Hiccups improved. GI note reviewed and discussed with Dr. Brown.. Lab results reviewed. Patient is medically stable for discharge. Outpatient follow-up with GI and PCP 11/29 patient's discharge was canceled yesterday due to recommendations from nephrology Patient has been cleared for discharge today Outpatient follow-up with nephrology in 1 week He is medically stable for discharge Final diagnosis Hyponatremia Unclear etiology but most likely secondary to severe hiccups likely from phrenic nerve irritation Serum sodium at the time of discharge was 137 Hypokalemia Mild Potassium supplemented Abdominal pain Likely musculoskeletal from severe hiccups Intractable hiccups Improved Etiology unclear Follow-up with GI GERD Continue PPI Hypertension Continue home medications ? Cirrhosis-mild CT of the abdomen and pelvis results reviewed GI note reviewed-possibly CAMPOS HBs Ag positive Patient is not aware of this Outpatient follow-up with GI Disposition: DC-01 TO HOME OR SELFCARE Final Discharge Diagnosis (Prints w/discharge instructions): Hyponatremia Time spent for discharge: 36 minutes Core Measure Documentation - Palliative Care Palliative Care/ Comfort Measures: Not Applicable - Core Measures Any of the following diagnoses?: none Exam - Constitutional Vitals: Temp Pulse Resp BP Pulse Ox 98.4 F 93 H 18 156/90 94 11/29/20 07:43 11/29/20 07:43 11/29/20 07:43 11/29/20 07:43 11/29/20 07:43 General appearance: Present: no acute distress - EENT Eyes: Present: PERRL, EOM intact ENT: hearing intact - Neck Neck: Present: supple - Respiratory Respiratory effort: normal Respiratory: bilateral: CTA - Cardiovascular Rhythm: regular Heart Sounds: Present: S1 & S2 - Extremities Extremities: No edema - Abdominal General gastrointestinal: Present: soft, non-tender Male genitourinary: Present: deferred - Rectal Rectal Exam: deferred - Integumentary Integumentary: Present: clear - Musculoskeletal Musculoskeletal: strength equal bilaterally - Psychiatric Psychiatric: appropriate mood/affect - Neurologic Neurologic: no focal deficits Plan Activity: advance as tolerated Weight Bearing Status: Full Weight Bearing Diet: regular, low fat, low cholesterol Follow up with: FLORES BROWN MD [Staff Physician] - 7 Days ISELA REESE MD [Primary Care Provider] - 7 Days CLOVIS TROY MD [Staff Physician] - 7 Days Prescriptions: Pantoprazole [Protonix] 40 mg PO QDAY #30 tablet
[2020-11-30] MEDS ORDERED: PANTOPRAZOLE 40 MG TAB PO SCH (07:30)
--- NOTE | 2020-11-30 10:11 | Electrocardiograph Report ---
[facility] Test Date: 2020-11-27 Test Time: 05:20:06 Pat Name: LIBERTY BARRETT Department: Room: A456 1 Gender: M [employer]: REED : 1945 Requested By: SUNNY SHETH Order Number: [id number] Reading MD: Cortez Bahena Measurements Intervals [place] Rate: 70 P: 46 OR: 186 QRS: 27 QRSD: 99 T: 33 QT: 437 QTc: 472 Interpretive Statements Sinus rhythm Consider left ventricular hypertrophy No previous ECG available for comparison Electronically Signed On 11-30-2020 10:11:17 EDT by Cortez Bahena
== END 2020-11-29 14:40 | disposition home or self-care (01) | DRG 641 ==
LOC: ED 23:30 → 4A 11-27 04:35
PROVIDERS: ADMIT Hospitalist; ATTEND Internal Medicine
DX: E87.1 Hypo-osmolality and hyponatremia (principal); K74.60 Unspecified cirrhosis of liver; G58.8 Other specified mononeuropathies; R10.9 Unspecified abdominal pain; E87.6 Hypokalemia; E87.8 Other disorders of electrolyte and fluid balance, not elsewhere classified; K76.9 Liver disease, unspecified; K21.9 Gastro-esophageal reflux disease without esophagitis; I10 Essential (primary) hypertension; Z79.899 Other long term (current) drug therapy; Z79.891 Long term (current) use of opiate analgesic; Z79.01 Long term (current) use of anticoagulants; Z82.49 Family history of ischemic heart disease and other diseases of the circulatory system; Z63.4 Disappearance and death of family member
CPT/HCPCS: 36415; 71045; 74177; 80048; 80053; 80074; 81001; 83690; 83880; 84295; 84300; 84484; 84550; 85007; 85025; 93005; 96374; 96375; G0378; C9113; J0360; J1644; J2597; J3230; J7030; J7070; Q9967